=== PATIENT | female | born 1980 | race Caucasian/White ===

== ENCOUNTER 2016-07-25 01:33 | Emergency (ER) | payer MEDICAID ==
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
[2016-07-25] MEDS ORDERED: Ketorolac 60 MG/2 ML SDV IM ONE ×2 (02:35→02:45)
[2016-07-25] MEDS ORDERED: Acetaminophen 325 MG Tab PO ONE (02:36)
[2016-07-25 04:48] VITALS: BP 112/60
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
== END 2016-07-25 04:46 ==
LOC: MW.ED 01:33
DX: R51 Headache (principal); F17.200 Nicotine dependence, unspecified, uncomplicated; Z88.8 Allergy status to other drugs, medicaments and biological substances
CPT/HCPCS: 70450; 81025; 96372; 99284; J1885; 99283

== ENCOUNTER 2016-09-01 05:04 | Observation (INO) | payer MEDICAID ==
[2016-09-01] MEDS ORDERED: Ketorolac 30 MG/ML SDV IVPUSH ONE (05:55)
[2016-09-01] MEDS ORDERED: Ondansetron 4 MG/2 ML SDV IVPUSH ONE (05:55)
[2016-09-01] MEDS ORDERED: Sodium Chloride 0.9% 1,000 ML IV ONE (05:56)
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
[2016-09-01 07:07] LABS: CHLORIDE,CL 108 mmol/L (98-110); SODIUM,NA 137 mmol/L (136-146)
[2016-09-01] MEDS ORDERED: Iopamidol 755 Mg/ML 100 ML Bottle IVPUSH STA (07:27)
[2016-09-01] MEDS: HYDROmorphone 1 MG/ML Syringe IVPUSH PRN ×2 (09:43→12:53)
--- NOTE | 2016-09-01 10:20 | US ---
EXAMINATION: Right upper quadrant ultrasound HISTORY: Pain COMPARISON: CT dated 09/01/2016 TECHNIQUE: Grayscale and color Doppler images obtained. FINDINGS: The visualized pancreas appears normal. The liver is normal in contour and echogenicity wi thout a focal hepatic mass. The gallbladder wall thickness is borderline. Multiple shadowing gallsto obdulio are noted. Possible trace pericholecystic fluid. The sonographic Bailey sign is positive. The co mmon bile duct measures 3 mm. The right kidney measures 11.1 cm [id number] without evidence of hyd ronephrosis. IMPRESSION: 1. Positive sonographic Bailey sign with cholelithiasis and borderline gallbladder wall thickening. This is suspicious for cholecystitis.
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
[2016-09-01] MEDS: Acetaminophen/HYDROcodone 325-5 MG Tab PO PRN ×2 (11:47→15:48)
[2016-09-01] MEDS: Ondansetron 4 MG/2 ML SDV IVPUSH PRN ×2 (11:48→21:05)
--- NOTE | 2016-09-01 13:29 | PCM.HP ---
H&P History of Present Illness - General Date of Service: 09/01/16 Source of Information: Patient History Limitations: Reports: No Limitations - History of Present Illness Initial Comments - Free Text/Narative: Patient is a 36-year-old female who presents with a 12 hour history of right upper quadrant pain. The patient developed a similar pain in couple weeks ago that lasted for approximately 3 days then subsided. The patient thought she had eaten something that did not agree with her stomach. Last evening she ate a meal containing fat and developed more severe and intense right upper quadrant pain that radiated to her back. The pain did not subside with ibuprofen. She presented to the emergency room. A CT and right upper quadrant ultrasound were performed that showed a dilated gallbladder with associated stones and mild wall thickening concerning for acute cholecystitis. The patient was given IV fluids and pain medications but continues to have right upper quadrant pain. She denies any fevers or chills. Labs were performed that showed no elevation in her liver enzymes. Her white count is normal but her neutrophil percent is elevated. Middle Abdominal Pain Score (Numeric/FACES): 8 - Related Data Allergies/Adverse Reactions: Allergies Allergy/AdvReac Type Severity Reaction Status Date / Time cefaclor [From Ceclor] Allergy Rash Verified 09/01/16 05:16 Home Medications: Home Meds Amitriptyline [Elavil] 09/01/16 [History] Past Medical History HEENT History: Reports: Other (See Below) Other HEENT History: Migraines Cardiovascular History: Reports: None Respiratory History: Reports: None Gastrointestinal History: Reports: None Genitourinary History: Reports: None [employer] History: Reports: None Musculoskeletal History: Reports: None Neurological History: Reports: None Psychiatric History: Reports: None Endocrine/Metabolic History: Reports: None Oncologic (Cancer) History: Reports: None Dermatologic History: Reports: None - Infectious Disease History Infectious Disease History: Reports: Chicken Pox - Past Surgical History Female Surgical History: Reports: Hysterectomy Social & Family History - Family History Family Medical History: Noncontributory - Tobacco Use Smoking Status *Q: Never Smoker Years of Tobacco use: 20 Packs/Tins Daily: 0.5 - Caffeine Use Caffeine Use: Reports: None - Recreational Drug Use Recreational Drug Use: No Recreational Drug Type: Reports: Marijuana/Hashish, Methamphetamine Recreational Drug Use Frequency: Socially H&P Review of Systems - Review of Systems: Review Of Systems: See Below General: Reports: Malaise, Weakness HEENT: Reports: No Symptoms Pulmonary: Reports: No Symptoms Cardiovascular: Reports: No Symptoms Gastrointestinal: Reports: Abdominal Pain Genitourinary: Reports: No Symptoms Musculoskeletal: Reports: Back Pain Skin: Reports: No Symptoms Psychiatric: Reports: No Symptoms Neurological: Reports: No Symptoms Exam - Exam Exam: See Below - Vital Signs Vital Signs: Last Vital Signs Temp 37.1 C 09/01/16 05:13 Pulse 70 09/01/16 12:00 Resp 16 09/01/16 12:00 BP 109/70 09/01/16 12:00 Pulse Ox 98 09/01/16 12:00 Weight: 68.2 kg - Exam General: Alert, Oriented HEENT: Conjunctiva Clear, Mucosa Moist & [place], Nares Patent, Pupils Equal, Pupils Reactive, Other (Poor dentition) Lungs: Clear to Auscultation, Normal Respiratory Effort Cardiovascular: Regular Rate, Regular Rhythm Abdomen: Normal Bowel Sounds, Soft, Guarding, Tenderness, Bailey's Sign Back Exam: Normal Inspection Extremities: Normal Inspection - Patient Data Result Diagrams: 09/01/16 06:15 09/01/16 06:15 *Q Meaningful Use (ADM) - VTE *Q VTE Criteria *Q: - Stroke *Q Stroke Criteria *Q: - AMI *Q AMI Criteria *Q: - Problem List (1) Cholecystitis SNOMED Code(s): 76433027 ICD Code: K81.9 - CHOLECYSTITIS, UNSPECIFIED Status: Acute Current Visit : Yes Problem List Initiated/Reviewed/Updated: Yes Orders Last 24hrs: Active Orders 24 hr Category Date Time Status Patient Status [ADT] Routine ADT 09/01/16 11:30 Active May Shower [RC] ASDIRECTED Care 09/01/16 11:30 Active Notify Provider Vital Signs [RC] PRN Care 09/01/16 11:32 Active RT Incentive Spirometry [RC] ASDIRECTED Care 09/01/16 11:30 Active Vital Signs [RC] PER UNIT ROUTINE Care 09/01/16 11:30 Active Clear Liquid Diet [DIET] Diet 09/01/16 Breakfast Active COMPREHENSIVE METABOLIC PN,CMP [CHEM] AM Lab 09/02/16 05:11 Ordered COMPREHENSIVE METABOLIC PN,CMP [CHEM] AM Lab 09/03/16 05:11 Ordered Acetaminophen/HYDROcodone [[place] 325-5 MG] Med 09/01/16 11:30 Active 2 tab PO Q4H PRN HYDROmorphone [Dilaudid] Med 09/01/16 11:30 Active 0.5 mg IVPUSH Q1H PRN Ondansetron [Zofran] Med 09/01/16 11:30 Active 4 mg IVPUSH Q6H PRN Resuscitation Status Routine Resus Stat 09/01/16 11:30 Ordered Medication Orders Hydrocodone Bitart/Acetaminophen ([place] 325-5 Mg) 2 tab PO Q4H PRN PRN Reason: Pain (moderate 4-6) Last Admin: 09/01/16 11:47 Dose: 2 tab Hydromorphone HCl (Dilaudid) 0.5 mg IVPUSH Q1H PRN PRN Reason: Pain Last Admin: 09/01/16 12:53 Dose: 0.5 mg Admin: 09/01/16 09:43 Dose: 0.5 mg Hydromorphone HCl (Dilaudid) 0.5 mg IVPUSH Q1H PRN PRN Reason: Pain (severe 7-10) Ondansetron HCl (Zofran) 4 mg IVPUSH Q6H PRN PRN Reason: Nausea/Vomiting Last Admin: 09/01/16 11:48 Dose: 4 mg Assessment/Plan Comment:: The patient has signs of cholecystitis. Her pain is not improved with IV and oral pain medications. Given her clinical and imaging findings I believe she has acute calculous cholecystitis. Since she is within 72 hours of the onset of pain I will take out her gallbladder. The patient and I discussed the pathophysiology of biliary disease. The patient and I discussed the laparoscopic and open approach to cholecystectomy. Should I be unable to remove the gallbladder safely via the laparoscopic approach I will convert to open. We discussed the expected perioperative course as well as the risks including bleeding infection or damage to surrounding structures. Patient verbalized understanding and wishes to proceed. I wouldn't her overnight for IV fluid rehydration, antibiotics, and will make her n.p.o. at midnight for surgery.
--- NOTE | 2016-09-01 14:43 | PCM.PREANE ---
Preanesthetic Assessment - Procedure Proposed Procedure: laparoscopic cholecystectomy - Anesthesia/Transfusion/Family Hx Anesthesia History: Prior Anesthesia Without Reaction Family History of Anesthesia Reaction: No Intubation History: Unknown Additional History: see substance abuse hx - Review of Systems General: No Symptoms Pulmonary: No Symptoms Cardiovascular: No Symptoms Gastrointestinal: Abdominal pain (led to ER admission today) Neurological: Headache (treated with amitryptiline) Other: Reports: None - Physical Assessment NPO Status Date: 09/01/16 NPO Status Time: 23:55 O2 Sat by Pulse Oximetry: 98 Respiratory Rate: 16 Vital Signs: Last Vital Signs Temp 98.8 F 09/01/16 05:13 Pulse 70 09/01/16 12:00 Resp 16 09/01/16 12:00 BP 109/70 09/01/16 12:00 Pulse Ox 98 09/01/16 12:00 Height: 5 ft 7 in Weight: 150 lb 5.684 oz ASA Class: 2E Mental Status: Alert & Oriented x3 Dentition: Reports: Broken Tooth/Teeth (poor oral dental appearance (? meth exposure)), Missing Tooth/Teeth Thyro-Mental Finger Breadths: 3 Mouth Opening Finger Breadths: 3 ROM/Head Extension: Full Lungs: Clear to auscultation, Normal respiratory effort - Lab Values: Laboratory Last Values WBC 8.77 K/uL (4.0-11.0) 09/01/16 06:15 RBC 4.64 M/uL (4.30-5.90) 09/01/16 06:15 Hgb 14.0 g/dL (12.0-16.0) 09/01/16 06:15 Hct 42.3 % (36.0-46.0) 09/01/16 06:15 MCV 91.2 fL (80.0-98.0) 09/01/16 06:15 MCH 30.2 pg (27.0-32.0) 09/01/16 06:15 MCHC 33.1 g/dL (31.0-37.0) 09/01/16 06:15 RDW Std Deviation 45.8 fl (28.0-62.0) 09/01/16 06:15 RDW Coeff of Rajeev 14 % (11.0-15.0) 09/01/16 06:15 Plt Count 258 K/uL (150-400) 09/01/16 06:15 MPV 9.30 fL (7.40-12.00) 09/01/16 06:15 Neut % (Auto) 80.3 % (48.0-80.0) H 09/01/16 06:15 Lymph % (Auto) 15.4 % (16.0-40.0) L 09/01/16 06:15 [place] % (Auto) 3.6 % (0.0-15.0) 09/01/16 06:15 Eos % (Auto) 0.5 % (0.0-7.0) 09/01/16 06:15 Baso % (Auto) 0.2 % (0.0-1.5) 09/01/16 06:15 Neut # (Auto) 7.0 K/uL (1.4-5.7) H 09/01/16 06:15 Lymph # (Auto) 1.4 K/uL (0.6-2.4) 09/01/16 06:15 [place] # (Auto) 0.3 K/uL (0.0-0.8) 09/01/16 06:15 Eos # (Auto) 0.0 K/uL (0.0-0.7) 09/01/16 06:15 Baso # (Auto) 0.0 K/uL (0.0-0.1) 09/01/16 06:15 Nucleated RBC % 0.0 /100WBC 09/01/16 06:15 Nucleated RBCs # 0 K/uL 09/01/16 06:15 Sodium 137 mmol/L (136-146) 09/01/16 06:15 Potassium 4.0 mmol/L (3.5-5.1) 09/01/16 06:15 Chloride 108 mmol/L (98-110) 09/01/16 06:15 Carbon Dioxide 21 mmol/L (21-31) 09/01/16 06:15 BUN 8 mg/dL (6.0-23.0) 09/01/16 06:15 Creatinine 0.7 mg/dL (0.6-1.5) 09/01/16 06:15 Est Cr Clr Drug Dosing 109.08 mL/min 09/01/16 06:15 Estimated GFR (MDRD) > 60.0 ml/min 09/01/16 06:15 Glucose 116 mg/dL (60-110) H 09/01/16 06:15 Calcium 8.8 mg/dL (8.8-10.8) 09/01/16 06:15 Total Bilirubin 0.5 mg/dL (0.1-1.5) 09/01/16 06:15 AST 13 IU/L (5-40) 09/01/16 06:15 ALT 10 IU/L (8-54) 09/01/16 06:15 Alkaline Phosphatase 58 (40-150) 09/01/16 06:15 Total Protein 7.3 g/dL (6.0-8.0) 09/01/16 06:15 Albumin 4.6 g/dL (3.5-5.0) 09/01/16 06:15 Globulin 2.7 g/dL (2.0-3.5) 09/01/16 06:15 Albumin/Globulin Ratio 1.7 (1.3-2.8) 09/01/16 06:15 Lipase 11 U/L (7-80) 09/01/16 06:15 Urine Color YELLOW 09/01/16 05:30 Urine Appearance SLT CLOUDY 09/01/16 05:30 Urine pH 7.5 (5.0-8.0) 09/01/16 05:30 Ur Specific [place] 1.010 (1.001-1.035) 09/01/16 05:30 Urine Protein TRACE mg/dL (NEGATIVE) 09/01/16 05:30 Urine Glucose (UA) NEGATIVE mg/dL (NEGATIVE) 09/01/16 05:30 Urine Ketones NEGATIVE mg/dL (NEGATIVE) 09/01/16 05:30 Urine Occult Blood NEGATIVE (NEGATIVE) 09/01/16 05:30 Urine Nitrite NEGATIVE (NEGATIVE) 09/01/16 05:30 Urine Bilirubin NEGATIVE (NEGATIVE) 09/01/16 05:30 Urine Urobilinogen 0.2 EU/dL (<2.0) 09/01/16 05:30 Ur Leukocyte Esterase NEGATIVE (NEGATIVE) 09/01/16 05:30 Urine RBC NONE SEEN (0-2/HPF) 09/01/16 05:30 Urine WBC 0-1 (0-5/HPF) 09/01/16 05:30 Ur Epithelial Cells FEW (NONE-FEW) 09/01/16 05:30 Amorphous Sediment LIGHT (NEGATIVE) 09/01/16 05:30 Urine Bacteria FEW (NEGATIVE) 09/01/16 05:30 Urine HCG, Qual NEGATIVE (NEGATIVE) 09/01/16 05:30 - Allergies Allergies/Adverse Reactions: Allergies Allergy/AdvReac Type Severity Reaction Status Date / Time cefaclor [From Ceclor] Allergy Rash Verified 09/01/16 05:16 - Blood Blood Available: No Product(s) Available: None - Anesthesia Plan Pre-Op Medication Ordered: None - Acknowledgements Anesthesia Type Planned: General Anesthesia (OETT) Pt an Appropriate Candidate for the Planned Anesthesia: Yes Alternatives and Risks of Anesthesia Discussed w Pt/Guardian: Yes Pt/Guardian Understands and Agrees with Anesthesia Plan: Yes PreAnesthesia Questionnaire - Past Health History Medical/Surgical History: Denies Medical/Surgical History HEENT History: Reports: Other (See Below) Other HEENT History: Migraines Cardiovascular History: Reports: None Respiratory History: Reports: None Gastrointestinal History: Reports: None Genitourinary History: Reports: None SACK FILLER History: Reports: None Other OB/BYN History: Cervical cancer 2009 Musculoskeletal History: Reports: None Neurological History: Reports: None Psychiatric History: Reports: None Endocrine/Metabolic History: Reports: None Hematologic History: Reports: Other (See Below) Other Hematologic History: Son has hemophilia Oncologic (Cancer) History: Reports: None Other Oncologic History: Cervical Cancer, radical hysterectomy via davinci method Dermatologic History: Reports: None - Infectious Disease History Infectious Disease History: Reports: Chicken Pox - Past Surgical History Female Surgical History: Reports: Hysterectomy - SUBSTANCE USE Smoking Status *Q: Never Smoker Tobacco Use Within Last Twelve Months: Cigarettes Second Hand Smoke Exposure: No Recreational Drug Use History: No Recreational Drug Type: Reports: Marijuana/Hashish, Methamphetamine - HOME MEDS Home Medications: Home Meds Amitriptyline [Elavil] 09/01/16 [History] - CURRENT (IN HOUSE) MEDS Current Meds: Current Medications Hydrocodone Bitart/Acetaminophen ([place] 325-5 Mg) 2 tab PO Q4H PRN PRN Reason: Pain (moderate 4-6) Last Admin: 09/01/16 11:47 Dose: 2 tab Hydromorphone HCl (Dilaudid) 0.5 mg IVPUSH Q1H PRN PRN Reason: Pain (severe 7-10) Lactated Ringer's (Ringers, Lactated) 1,000 mls @ 125 mls/hr IV ASDIRECTED JENNA Piperacillin Sod/Tazobactam (Sod 3.375 gm/ Sodium Chloride) 50 mls @ 100 mls/ hr IV Q8H JENNA Ondansetron HCl (Zofran) 4 mg IVPUSH Q6H PRN PRN Reason: Nausea/Vomiting Last Admin: 09/01/16 11:48 Dose: 4 mg Discontinued Medications Hydromorphone HCl (Dilaudid) 0.5 mg IVPUSH Q1H PRN PRN Reason: Pain Last Admin: 09/01/16 12:53 Dose: 0.5 mg Sodium Chloride (Normal Saline) 1,000 mls @ 999 mls/hr IV .Bolus ONE Stop: 09/01/16 06:56 Last Admin: 09/01/16 06:09 Dose: 999 mls/hr Iopamidol (Isovue-370 (76%)) 83 ml IVPUSH ONETIME STA Stop: 09/01/16 07:28 Last Admin: 09/01/16 07:27 Dose: 83 ml Ketorolac Tromethamine (Toradol) 30 mg IVPUSH ONETIME ONE Stop: 09/01/16 05:56 Last Admin: 09/01/16 06:11 Dose: 30 mg Ondansetron HCl (Zofran) 4 mg IVPUSH ONETIME ONE Stop: 09/01/16 05:56 Last Admin: 09/01/16 06:10 Dose: 4 mg
[2016-09-01] MEDS: Lactated Ringers 1,000 ML IV SCH ×2 (15:00→21:07)
[2016-09-01] MEDS: Piperacillin/Tazobactam 3.375 GM in Sodium Chloride 0.9% 50 ML IV SCH ×2 (15:30→22:09)
[2016-09-01] MEDS: Amitriptyline 25 MG Tab PO SCH (20:00)
[2016-09-01] MEDS: HYDROmorphone 2 MG/ML Syringe IVPUSH PRN (21:01)
[2016-09-02] MEDS ORDERED: Lactated Ringers 1,000 ML IV SCH (05:00)
[2016-09-02] MEDS: Piperacillin/Tazobactam 3.375 GM in Sodium Chloride 0.9% 50 ML IV SCH ×2 (05:36→14:42)
[2016-09-02 06:15] LABS: CHLORIDE,CL 109 mmol/L (98-110); SODIUM,NA 136 mmol/L (136-146)
[2016-09-02] MEDS ORDERED: Midazolam 1 MG/ML 2 ML SDV ONE ×2 (07:54→08:47)
[2016-09-02] MEDS ORDERED: Propofol 200 MG/20 ML SDV ONE (07:54)
[2016-09-02] MEDS ORDERED: fentaNYL 250 MCG/5 ML SDV ONE (07:54)
[2016-09-02] MEDS ORDERED: Succinylcholine/Normal Saline 200 MG/10 ML Syringe ONE ×2 (07:55→10:52)
[2016-09-02] MEDS ORDERED: Rocuronium 10 MG/ML 10 ML Syringe ONE (07:55)
[2016-09-02] MEDS ORDERED: Ondansetron 4 MG/2 ML SDV ONE (07:55)
[2016-09-02] MEDS ORDERED: Dexamethasone 4 MG/ML 5 ML MDV ONE (07:55)
[2016-09-02] MEDS ORDERED: Bupivacaine 0.5% 30 ML SDV ONE (07:56)
[2016-09-02] MEDS ORDERED: Neostigmine Methylsulfate 1 MG/ML 5 ML Syringe ONE (07:57)
--- NOTE | 2016-09-02 07:58 | PCM.SURGPN ---
- General Info Date of Service: 09/02/16 Date of Surgery/Procedure: 09/02/16 Functional Status: Reports: pain controlled, other (Patient had one dose of norco last night after which she became itchy, dizzy, and her blood pressure became soft. BP came up with bolus of fluid and remained stable after that. Rest of symptoms resolved. Toelrated dilaudid. Abdomen feels better this morning. ) - Review of Systems General: Reports: No Symptoms Pulmonary: Reports: no symptoms Cardiovascular: Reports: No Symptoms Gastrointestinal: Reports: Abdominal pain (improved), Nausea (last evening). Denies: Vomiting - Patient Data Vitals - most recent: Last Vital Signs Temp 37.3 C 09/02/16 04:04 Pulse 83 09/02/16 04:04 Resp 16 09/02/16 04:04 BP 93/52 L 09/02/16 04:04 Pulse Ox 96 09/02/16 04:04 Weight - most recent: 68.2 kg I&O - last 24 hours: Intake & Output 09/01/16 09/02/16 09/02/16 22:59 06:59 14:59 Intake Total 604 2637 Output Total 350 350 Balance 254 2287 Lab Results last 24 hrs: Laboratory Results - last 24 hr 09/02/16 Range/Units 05:28 Sodium 136 (136-146) mmol/L Potassium 3.9 (3.5-5.1) mmol/L Chloride 109 (98-110) mmol/L Carbon Dioxide 21 (21-31) mmol/L BUN 5 L (6.0-23.0) mg/dL Creatinine 0.6 (0.6-1.5) mg/dL Est Cr Clr Drug Dosing 127.26 mL/min Estimated GFR (MDRD) > 60.0 ml/min Glucose 108 (60-110) mg/dL Calcium 7.6 L (8.8-10.8) mg/dL Total Bilirubin 0.8 (0.1-1.5) mg/dL AST 287 H (5-40) IU/L ALT 347 H (8-54) IU/L Alkaline Phosphatase 53 (40-150) Total Protein 5.4 L (6.0-8.0) g/dL Albumin 3.5 (3.5-5.0) g/dL Globulin 1.9 L (2.0-3.5) g/dL Albumin/Globulin Ratio 1.8 (1.3-2.8) Med Orders - Current: Current Medications Amitriptyline HCl (Elavil) 25 mg PO BEDTIME [facility] Last Admin: 09/01/16 20:00 Dose: 25 mg Hydromorphone HCl (Dilaudid) 0.5 mg IVPUSH Q1H PRN PRN Reason: Pain (severe 7-10) Last Admin: 09/01/16 21:01 Dose: 0.5 mg Lactated Ringer's (Ringers, Lactated) 1,000 mls @ 125 mls/hr IV ASDIRECTED [facility] Last Admin: 09/01/16 21:07 Dose: 125 mls/hr Piperacillin Sod/Tazobactam (Sod 3.375 gm/ Sodium Chloride) 50 mls @ 100 mls/ hr IV Q8H [facility] Last Admin: 09/02/16 05:36 Dose: 100 mls/hr Lactated Ringer's (Ringers, Lactated) 1,000 mls @ 200 mls/hr IV ASDIRECTED [facility] Stop: 09/02/16 10:00 Last Admin: 09/02/16 05:39 Dose: 200 mls/hr Ondansetron HCl (Zofran) 4 mg IVPUSH Q6H PRN PRN Reason: Nausea/Vomiting Last Admin: 09/01/16 21:05 Dose: 4 mg Discontinued Medications Hydrocodone Bitart/Acetaminophen ([place] 325-5 Mg) 2 tab PO Q4H PRN PRN Reason: Pain (moderate 4-6) Last Admin: 09/01/16 15:48 Dose: 2 tab Hydromorphone HCl (Dilaudid) 0.5 mg IVPUSH Q1H PRN PRN Reason: Pain Last Admin: 09/01/16 12:53 Dose: 0.5 mg Sodium Chloride (Normal Saline) 1,000 mls @ 999 mls/hr IV .Bolus ONE Stop: 09/01/16 06:56 Last Admin: 09/01/16 06:09 Dose: 999 mls/hr Iopamidol (Isovue-370 (76%)) 83 ml IVPUSH ONETIME STA Stop: 09/01/16 07:28 Last Admin: 09/01/16 07:27 Dose: 83 ml Ketorolac Tromethamine (Toradol) 30 mg IVPUSH ONETIME ONE Stop: 09/01/16 05:56 Last Admin: 09/01/16 06:11 Dose: 30 mg Ondansetron HCl (Zofran) 4 mg IVPUSH ONETIME ONE Stop: 09/01/16 05:56 Last Admin: 09/01/16 06:10 Dose: 4 mg - Exam General: alert, oriented Lungs: Normal respiratory effort Cardiovascular: Regular Rate Abdomen: soft, no distension, tenderness (in RUQ) - Problem List & Annotations (1) Cholecystitis SNOMED Code(s): 31706147 Code(s): K81.9 - CHOLECYSTITIS, UNSPECIFIED Status: Acute Current Visit: Yes - Problem List Review Problem List Initiated/Reviewed/Updated: Yes - My Orders Last 24 Hours: Active Orders 24 hr Category Date Time Status Patient Status [ADT] Routine ADT 09/01/16 11:30 Active May Shower [RC] ASDIRECTED Care 09/01/16 11:30 Active Notify Provider Vital Signs [RC] PRN Care 09/01/16 11:32 Active Vital Signs [RC] PER UNIT ROUTINE Care 09/01/16 11:30 Active NPO After Midnight [Nothing per Oral After Midnight Diet 09/01/16 Dinner Active Diet] [DIET] COMPREHENSIVE METABOLIC PN,CMP [CHEM] AM Lab 09/03/16 05:11 Ordered Amitriptyline [Elavil] Med 09/01/16 21:00 Active 25 mg PO BEDTIME HYDROmorphone [Dilaudid] Med 09/01/16 11:30 Active 0.5 mg IVPUSH Q1H PRN Lactated Ringers [Ringers, Lactated] 1,000 ml Med 09/01/16 14:15 Active IV ASDIRECTED Lactated Ringers [Ringers, Lactated] 1,000 ml Med 09/02/16 05:00 Active IV ASDIRECTED Ondansetron [Zofran] Med 09/01/16 11:30 Active 4 mg IVPUSH Q6H PRN Piperacillin/Tazobactam [Piperacil-Tazobact] 3.375 gm Med 09/01/16 14:30 Active Sodium Chloride 0.9% [Normal Saline] 50 ml IV Q8H Resuscitation Status Routine Resus Stat 09/01/16 11:30 Ordered Medication Orders Amitriptyline HCl (Elavil) 25 mg PO BEDTIME [facility] Last Admin: 09/01/16 20:00 Dose: 25 mg Hydromorphone HCl (Dilaudid) 0.5 mg IVPUSH Q1H PRN PRN Reason: Pain (severe 7-10) Last Admin: 09/01/16 21:01 Dose: 0.5 mg Lactated Ringer's (Ringers, Lactated) 1,000 mls @ 125 mls/hr IV ASDIRECTED [facility] Last Admin: 09/01/16 21:07 Dose: 125 mls/hr Infusion: 09/01/16 21:07 Dose: 125 mls/hr Admin: 09/01/16 15:00 Dose: 125 mls/hr Piperacillin Sod/Tazobactam (Sod 3.375 gm/ Sodium Chloride) 50 mls @ 100 mls/ hr IV Q8H [facility] Last Admin: 09/02/16 05:36 Dose: 100 mls/hr Infusion: 09/01/16 22:39 Dose: 100 mls/hr Admin: 09/01/16 22:09 Dose: 100 mls/hr Infusion: 09/01/16 16:00 Dose: 100 mls/hr Admin: 09/01/16 15:30 Dose: 100 mls/hr Lactated Ringer's (Ringers, Lactated) 1,000 mls @ 200 mls/hr IV ASDIRECTED [facility] Stop: 09/02/16 10:00 Last Admin: 09/02/16 05:39 Dose: 200 mls/hr Ondansetron HCl (Zofran) 4 mg IVPUSH Q6H PRN PRN Reason: Nausea/Vomiting Last Admin: 09/01/16 21:05 Dose: 4 mg Admin: 09/01/16 11:48 Dose: 4 mg - Plan Plan (Free Text/Narrative):: To the OR this am for laparoscopic possible open cholecystectomy. Elevated AST/ ALT but not bilirubin or Alk phos point to inflammation around the liver. Will avoid norco and it has been added to allergy list.
[2016-09-02] MEDS ORDERED: Phenylephrine/Normal Saline 100 MCG/ML 10 ML Syringe ONE ×2 (10:41→10:51)
[2016-09-02] MEDS ORDERED: Octyl 2-Cyanoacrylate 1 Tube ONE (11:27)
--- NOTE | 2016-09-02 11:44 | PCM.OPNOTE ---
- General Post-Op/Procedure Note Date of Surgery/Procedure: 09/02/16 Operative Procedure(s): Laparoscopic cholecystectomy Findings: Grossly enlarged and inflammed gallbladder containing stones Pre Op Diagnosis: Acute cholecystitis Post-Op Diagnosis: same Anesthesia Technique: General ET tube Primary Surgeon: Wendie Parry Pathology: gallbladder Fluid Replacement, Intraop: 1,400 Output, Urine Amount: 200 EBL in mLs: 25 Condition: Good Free Text/Narrative:: Intake & Output 09/01/16 09/02/16 09/02/16 22:59 06:59 14:59 Intake Total 604 2637 Output Total 350 350 Balance 254 2287
[2016-09-02] MEDS: fentaNYL 100 MCG/2 ML SDV IVPUSH PRN ×2 (11:59→12:11)
--- NOTE | 2016-09-02 12:14 | PCM.POSTAN ---
POST ANESTHESIA ASSESSMENT - MENTAL STATUS Mental Status: alert, oriented - RESPIRATORY Respiratory Status: respiratory rate WNL, airway patent, O2 saturation stable - CARDIOVASCULAR CV Status: pulse rate WNL, blood pressure stable - GASTROINTESTINAL GI Status: no symptoms - PAIN Pain Score: 5 (Pt sleepy and needs to be awakened by RN to ask pain score) - POST OP HYDRATION Hydration Status: adequate & stable
--- NOTE | 2016-09-02 14:57 | PCM.SURGPN ---
- General Info Date of Service: 09/02/16 Date of Surgery/Procedure: 09/02/16 POD#: 0 Post-Op Diagnosis: Acute cholecystitis Functional Status: Reports: pain controlled, tolerating diet, ambulating, incentive spirometry - Review of Systems General: Reports: No Symptoms Pulmonary: Reports: no symptoms Cardiovascular: Reports: No Symptoms Gastrointestinal: Reports: Abdominal pain (incisional ) Genitourinary: Reports: no symptoms Musculoskeletal: Reports: no symptoms - Patient Data Vitals - most recent: Last Vital Signs Temp 36.6 C 09/02/16 13:23 Pulse 67 09/02/16 13:23 Resp 16 09/02/16 13:23 BP 89/50 L 09/02/16 13:23 Pulse Ox 100 09/02/16 13:23 Weight - most recent: 68.2 kg I&O - last 24 hours: Intake & Output 09/01/16 09/02/16 09/02/16 22:59 06:59 14:59 Intake Total 604 2637 3000 Output Total 350 350 400 Balance 254 2287 2600 Lab Results last 24 hrs: Laboratory Results - last 24 hr 09/02/16 09/02/16 Range/Units 05:28 05:28 Sodium 136 (136-146) mmol/L Potassium 3.9 (3.5-5.1) mmol/L Chloride 109 (98-110) mmol/L Carbon Dioxide 21 (21-31) mmol/L BUN 5 L (6.0-23.0) mg/dL Creatinine 0.6 (0.6-1.5) mg/dL Est Cr Clr Drug Dosing 127.26 mL/min Estimated GFR (MDRD) > 60.0 ml/min Glucose 108 (60-110) mg/dL Calcium 7.6 L (8.8-10.8) mg/dL Total Bilirubin 0.8 (0.1-1.5) mg/dL AST 287 H (5-40) IU/L ALT 347 H (8-54) IU/L Alkaline Phosphatase 53 (40-150) Total Protein 5.4 L (6.0-8.0) g/dL Albumin 3.5 (3.5-5.0) g/dL Globulin 1.9 L (2.0-3.5) g/dL Albumin/Globulin Ratio 1.8 (1.3-2.8) Amylase 34 (10-90) U/L Lipase 10 (7-80) U/L Med Orders - Current: Current Medications Amitriptyline HCl (Elavil) 25 mg PO BEDTIME [facility] Last Admin: 09/01/16 20:00 Dose: 25 mg Hydromorphone HCl (Dilaudid) 0.5 mg IVPUSH Q1H PRN PRN Reason: Pain (severe 7-10) Last Admin: 09/01/16 21:01 Dose: 0.5 mg Hydromorphone HCl (Dilaudid) 2 mg PO Q4H PRN PRN Reason: Abdominal Pain Lactated Ringer's (Ringers, Lactated) 1,000 mls @ 125 mls/hr IV ASDIRECTED [facility] Last Admin: 09/01/16 21:07 Dose: 125 mls/hr Piperacillin Sod/Tazobactam (Sod 3.375 gm/ Sodium Chloride) 50 mls @ 100 mls/ hr IV Q8H [facility] Last Admin: 09/02/16 14:42 Dose: 100 mls/hr Ondansetron HCl (Zofran) 4 mg IVPUSH Q6H PRN PRN Reason: Nausea/Vomiting Last Admin: 09/01/16 21:05 Dose: 4 mg Discontinued Medications Hydrocodone Bitart/Acetaminophen ([place] 325-5 Mg) 2 tab PO Q4H PRN PRN Reason: Pain (moderate 4-6) Last Admin: 09/01/16 15:48 Dose: 2 tab Bupivacaine HCl (Marcaine 0.5%) Confirm Administered Dose 30 ml .ROUTE .STK-MED ONE Stop: 09/02/16 07:57 Dexamethasone (Dexamethasone) Confirm Administered Dose 20 mg .ROUTE .STK-MED ONE Stop: 09/02/16 07:56 Fentanyl (Sublimaze) Confirm Administered Dose 250 mcg .ROUTE .STK-MED ONE Stop: 09/02/16 07:55 Fentanyl (Sublimaze) 50 mcg IVPUSH Q5M PRN PRN Reason: Pain (moderate 4-6) Stop: 09/02/16 13:00 Last Admin: 09/02/16 12:11 Dose: 50 mcg Glycopyrrolate () Confirm Administered Dose 1 mg .ROUTE .STK-MED ONE Stop: 09/02/16 07:58 Hydromorphone HCl (Dilaudid) 0.5 mg IVPUSH Q1H PRN PRN Reason: Pain Last Admin: 09/01/16 12:53 Dose: 0.5 mg Sodium Chloride (Normal Saline) 1,000 mls @ 999 mls/hr IV .Bolus ONE Stop: 09/01/16 06:56 Last Admin: 09/01/16 06:09 Dose: 999 mls/hr Lactated Ringer's (Ringers, Lactated) 1,000 mls @ 200 mls/hr IV ASDIRECTED JENNA Stop: 09/02/16 10:00 Last Admin: 09/02/16 05:39 Dose: 200 mls/hr Iopamidol (Isovue-370 (76%)) 83 ml IVPUSH ONETIME STA Stop: 09/01/16 07:28 Last Admin: 09/01/16 07:27 Dose: 83 ml Ketorolac Tromethamine (Toradol) 30 mg IVPUSH ONETIME ONE Stop: 09/01/16 05:56 Last Admin: 09/01/16 06:11 Dose: 30 mg Lidocaine HCl (Xylocaine-Mpf 1%) Confirm Administered Dose 5 ml .ROUTE .STK-MED ONE Stop: 09/02/16 07:56 Midazolam HCl (Versed 1 Mg/Ml) Confirm Administered Dose 2 mg .ROUTE .STK-MED ONE Stop: 09/02/16 07:55 Midazolam HCl (Versed 1 Mg/Ml) Confirm Administered Dose 2 mg .ROUTE .STK-MED ONE Stop: 09/02/16 08:48 Neostigmine Methylsulfate (Neostigmine) Confirm Administered Dose 5 mg .ROUTE .STK-MED ONE Stop: 09/02/16 07:58 Octyl Cyanoacrylate (Dermabond Advance) Confirm Administered Dose 1 applic .ROUTE .STK-MED ONE Stop: 09/02/16 11:28 Ondansetron HCl (Zofran) 4 mg IVPUSH ONETIME ONE Stop: 09/01/16 05:56 Last Admin: 09/01/16 06:10 Dose: 4 mg Ondansetron HCl (Zofran) Confirm Administered Dose 4 mg .ROUTE .STK-MED ONE Stop: 09/02/16 07:56 Phenylephrine HCl (Phenylephrine In Ns 100 Mcg/Ml) Confirm Administered Dose 1 mg .ROUTE .STK-MED ONE Stop: 09/02/16 10:42 Phenylephrine HCl (Phenylephrine In Ns 100 Mcg/Ml) Confirm Administered Dose 1 mg .ROUTE .STK-MED ONE Stop: 09/02/16 10:52 Propofol (Diprivan 20 Ml) Confirm Administered Dose 200 mg .ROUTE .STK-MED ONE Stop: 09/02/16 07:55 Rocuronium [place] (Zemuron) Confirm Administered Dose 100 mg .ROUTE .STK-MED ONE Stop: 09/02/16 07:56 Succinylcholine Chloride (Succinylcholine In Ns Pf) Confirm Administered Dose 200 mg .ROUTE .STK-MED ONE Stop: 09/02/16 07:56 Succinylcholine Chloride (Succinylcholine In Ns Pf) Confirm Administered Dose 200 mg .ROUTE .STK-MED ONE Stop: 09/02/16 10:53 - Exam Wound/Incisions: dressing dry and intact General: alert, oriented, cooperative, no acute distress Lungs: Normal respiratory effort Cardiovascular: Regular Rate Abdomen: soft, no distension, tenderness (michelle-incisional ) Extremities: no edema Skin: warm, dry, intact Neurological: no new focal deficit Psy/Mental Status: alert, normal affect, normal mood - Problem List & Annotations (1) Cholecystitis SNOMED Code(s): 00392321 Code(s): K81.9 - CHOLECYSTITIS, UNSPECIFIED Status: Acute Current Visit: Yes - Problem List Review Problem List Initiated/Reviewed/Updated: Yes - My Orders Last 24 Hours: Active Orders 24 hr Category Date Time Status Advance Diet Instructions [DIET] Diet 09/02/16 Lunch Active Clear Liquid Diet [DIET] Diet 09/02/16 Lunch Active CBC W/O DIFF,HEMOGRAM [HEME] AM Lab 09/03/16 05:11 Ordered CBC W/O DIFF,HEMOGRAM [HEME] AM Lab 09/04/16 05:11 Ordered COMPREHENSIVE METABOLIC PN,CMP [CHEM] AM Lab 09/03/16 05:11 Ordered Amitriptyline [Elavil] Med 09/01/16 21:00 Active 25 mg PO BEDTIME HYDROmorphone [Dilaudid] Med 09/02/16 11:44 Active 2 mg PO Q4H PRN Lactated Ringers [Ringers, Lactated] 1,000 ml Med 09/01/16 14:15 Active IV ASDIRECTED Piperacillin/Tazobactam [Piperacil-Tazobact] 3.375 gm Med 09/01/16 14:30 Active Sodium Chloride 0.9% [Normal Saline] 50 ml IV Q8H Medication Orders Amitriptyline HCl (Elavil) 25 mg PO BEDTIME [facility] Last Admin: 09/01/16 20:00 Dose: 25 mg Hydromorphone HCl (Dilaudid) 0.5 mg IVPUSH Q1H PRN PRN Reason: Pain (severe 7-10) Last Admin: 09/01/16 21:01 Dose: 0.5 mg Hydromorphone HCl (Dilaudid) 2 mg PO Q4H PRN PRN Reason: Abdominal Pain Lactated Ringer's (Ringers, Lactated) 1,000 mls @ 125 mls/hr IV ASDIRECTED [facility] Last Admin: 09/01/16 21:07 Dose: 125 mls/hr Infusion: 09/01/16 21:07 Dose: 125 mls/hr Admin: 09/01/16 15:00 Dose: 125 mls/hr Piperacillin Sod/Tazobactam (Sod 3.375 gm/ Sodium Chloride) 50 mls @ 100 mls/ hr IV Q8H [facility] Last Admin: 09/02/16 14:42 Dose: 100 mls/hr Infusion: 09/02/16 06:06 Dose: 100 mls/hr Admin: 09/02/16 05:36 Dose: 100 mls/hr Infusion: 09/01/16 22:39 Dose: 100 mls/hr Admin: 09/01/16 22:09 Dose: 100 mls/hr Infusion: 09/01/16 16:00 Dose: 100 mls/hr Admin: 09/01/16 15:30 Dose: 100 mls/hr Ondansetron HCl (Zofran) 4 mg IVPUSH Q6H PRN PRN Reason: Nausea/Vomiting Last Admin: 09/01/16 21:05 Dose: 4 mg Admin: 09/01/16 11:48 Dose: 4 mg - Assessment Assessment (Free Text/Narrative):: _IV and po dilaudid as needed for pain. Advance diet as tolerated. Continue IVF until tolerating a regular diet. CBC and CMP in morning. Doing well post op.
--- NOTE | 2016-09-02 15:43 | OR ---
SURGEON: MACKENZIE CORBETT MD DATE OF PROCEDURE: 09/02/2016 PREOPERATIVE DIAGNOSIS: Acute cholecystitis. POSTOPERATIVE DIAGNOSIS: Acute cholecystitis. PROCEDURE PERFORMED: Laparoscopic cholecystectomy. ANESTHESIA: General endotracheal anesthesia. FLUIDS: 1400 mL crystalloid. URINE OUTPUT: 200 mL. ESTIMATED BLOOD LOSS: 25 mL. FINDINGS: Enlarged hydropic gallbladder, acutely inflamed. The gallbladder contained stones. COMPLICATIONS: None. INDICATIONS: The patient is a 36-year-old female with a history of right upper quadrant pain. Two nights ago, the patient had a fatty meal and developed sharp right upper quadrant pain that radiated to her back. She presented to the emergency room. A workup was completed that showed acute cholecystitis with no signs of choledocholithiasis. The patient was admitted overnight for IV fluid hydration and IV antibiotics. I explained to the patient that the treatment for acutely presenting cholecystitis is surgery. We discussed the laparoscopic and open approaches to cholecystectomy. Should I be unable to perform this safely laparoscopically, I would convert to open. We discussed the expected perioperative course as well as the risks of the procedure including bleeding, infection, or damage to surrounding structures. The patient verbalized understanding and wishes to proceed. PROCEDURE IN DETAIL: The patient was brought to the operating room and placed on the OR table in supine position. A time-out was completed verifying the patient's name, age, date of , allergies, and procedure to be performed. General endotracheal anesthesia was induced. The abdomen was prepped and draped in the usual standard fashion. The left arm was tucked to the patient's side and a Tavarez catheter placed. I anesthetized the infraumbilical fold with 0.5% Marcaine plain. An incision was made using a 15 blade along the infraumbilical fold. I used cautery to dissect down to the subcutaneous fat. I bluntly dissected down to the fascia using [employer] retractors. The fascia was grasped with Mary's and elevated. The fascia was incised using Edwards scissors. I identified the peritoneum and elevated this with a tonsil. It was sharply incised with a Metzenbaum scissors. A [id number] 0 Vicryl suture was placed in the fascia to allow for closure of this tissue at the end of the case. A 12 mm blunt-tip trocar was placed in the abdomen. The abdomen was insufflated to a pressure of 15 mmHg. A 5 mm 30 degree scope was inserted in the abdomen and I inspected the area underneath my incision. No damage was noted to the intestines underneath. Three 5 mm ports were placed under direct visualization in the following locations; one in the epigastric area, one along the right flank, and one along the midclavicular line two finger breathes below the right subcostal margin. The patient was placed in reverse Trendelenburg position and airplaned slightly to the left. The gallbladder was grossly enlarged and hydropic. I gently peeled down the omentum that was adhered loosely to the dome of the gallbladder. In order to be able to manipulate the gallbladder safely, I placed an aspiration needle through my right flank port and inserted it into the dome of the gallbladder. A large amount of light green watery fluid was aspirated. The aspiration needle was removed and atraumatic grasper was used to lift the dome of the gallbladder up above the liver. The patient's duodenum was adhered to the infundibulum. I took great care to gently dissect these adhesions without injuring the surrounding structures. Once the duodenum was safely removed from the gallbladder, I grasped the infundibulum with an atraumatic grasper placed through the midclavicular port. The infundibulum was retracted inferiorly and to the right. The peritoneum was inflamed with a large amount of edema in the tissues. This was taken down with blunt dissection, suction, and hook cautery. I identified the cystic duct and cystic artery. I continued to dissect the gallbladder wall off the gallbladder fossa shelter up the cystic plate to ensure that my anatomy was accurate. Once the critical view was achieved, I doubly clipped and ligated the cystic duct and cystic artery. Given how inflamed and enlarged the gallbladder was, there surrounding veins and branching arteries were enlarged. Several of these small bleeding vessels were also clipped and/or cauterized to ensure hemostasis. I used electrocautery to dissect the remainder of the gallbladder off the gallbladder fossa The gallbladder was then placed in an EndoCatch bag and removed through the infraumbilical port site. The gallbladder was so large that I had to enlarge the fascial incision using Edwards scissors and remove my previously placed 0 Vicryl suture. The gallbladder was passed off the table and sent to pathology. My 12 mm port was reinstalled on the abdomen and insufflation achieved. I copiously irrigated the abdomen with 2 L of normal saline until it ran clear. The area around the gallbladder fossa, cystic duct stump, and cystic artery stump were inspected and found to be hemostatic and with no leakage of bile. The ports were then removed under direct visualization and no further bleeding was noted. The 12 mm port was removed from the patient's abdomen and the abdomen allowed to desufflate. I closed the fascia at the infraumbilical site with interrupted 0 Vicryl sutures. The skin overlying the 12 mm port site was closed with interrupted 3-0 Vicryl sutures in the subcutaneous fat and a running 4-0 Monocryl suture in the subcuticular space. The 5 mm port sites were closed with interrupted 4-0 Monocryl sutures in the subcuticular space. The patient was noted during the case to have redness at tape sites. Because of this, Dermabond was placed over the incisions to avoid any extra adhesive to the patient's skin. Sterile dressings were applied. All counts were complete and correct at the end of the case. The patient was taken to the PACU in stable condition. JESICA CARPIO /[id number] JILLIAN
[2016-09-02] MEDS: HYDROmorphone 2 MG Tab PO PRN (17:15)
--- NOTE | 2016-09-02 18:43 | PCM48HPAN ---
Post Anesthesia Note - EVALUATION WITHIN 48HRS OF ANESTHETIC Vital Signs in Normal Range: Yes Patient Participated in Evaluation: Yes Respiratory Function Stable: Yes Airway Patent: Yes Cardiovascular Function Stable: Yes Hydration Status Stable: Yes Pain Control Satisfactory: Yes Nausea and Vomiting Control Satisfactory: Yes Mental Status Recovered: Yes - COMMENTS/OBSERVATIONS Free Text/Narrative:: Sitting up in a chair at bedside eating. States she just took a pain pill but doing ok.
[2016-09-02] MEDS: HYDROmorphone 2 MG/ML Syringe IVPUSH PRN ×3 (18:45→23:47)
[2016-09-02] MEDS: Lactated Ringers 1,000 ML IV SCH (18:48)
[2016-09-02] MEDS: Amitriptyline 25 MG Tab PO SCH (21:26)
[2016-09-02] MEDS: Ondansetron 4 MG/2 ML SDV IVPUSH PRN (21:42)
[2016-09-03] MEDS: HYDROmorphone 2 MG Tab PO PRN ×3 (01:18→12:25)
[2016-09-03] MEDS: Lactated Ringers 1,000 ML IV SCH (02:50)
[2016-09-03 06:17] LABS: CHLORIDE,CL 110 mmol/L (98-110); SODIUM,NA 138 mmol/L (136-146)
[2016-09-03 08:07] VITALS: BP 95/57
--- NOTE | 2016-09-03 08:14 | PCM.DCSUM1 ---
Discharge Summary - Hospital Course Free Text/Narrative:: Patient is a 36 year old female who presented to the ED with 12 hours of RUQ pain after a fatty meal. Work up revealed acute calculous cholecystitis. Patient was admitted to the hospital for fluid resuscitation and IV antibiotics. That evening she was given norco for pain. She became dizzy and itchy afterwards. Her BP dropped to 80s/40s. She was given a fluid bolus with improvement in her BP. [place] was added to her allergy list. She was taken to the OR the next day for a laparoscopic cholecystectomy. Her gallbladder was dilated, hydroptic, and filled with stones. The case went well with no complications. Her vitals were stable afterwards. She was able to advance her diet to regular. She was given oral dilaudid with no complications. Her pain was well controlled with this. She has been ambulating without difficulty. Her UOP is adequate. She was cleared for discharge home. - Discharge Data Discharge Date: 09/03/16 Discharge Disposition: Home, Self-Care 01 Condition: Good - Discharge Diagnosis/Problem(s) (1) Cholecystitis SNOMED Code(s): 14007208 ICD Code: K81.9 - CHOLECYSTITIS, UNSPECIFIED Status: Acute Current Visit : Yes - Patient Summary/Data Operative Procedure(s) Performed: Laparoscopic cholecystectomy - Patient Instructions Diet: Regular Diet as Tolerated Activity: No Lifting Over 20 Pounds (for four weeks), Rest and Relax Today Driving: Do Not Drive Driving, Other: No driving for one week or while taking narcotic pain medications Showering/Bathing: No Showering (until tomorrow), No Tub Bathing/Swimming (for 2 weeks) Wound/Incision Care: Keep Operative Site/Wound Site Clean and Dry Notify Provider of: Fever, Increased Pain, Swelling and Redness, Drainage, Nausea and/or Vomiting - Discharge Plan Prescriptions/Med Rec: HYDROmorphone [Dilaudid] 2 mg PO Q4H PRN #40 tablet PRN Reason: Abdominal Pain Polyethylene Glycol 3350 [MiraLAX] 17 gm PO BEDTIME #14 packet Home Medications: Home Meds Amitriptyline [Elavil] 25 mg PO BEDTIME 09/01/16 [History] HYDROmorphone [Dilaudid] 2 mg PO Q4H PRN #40 tablet 09/03/16 [Rx] Polyethylene Glycol 3350 [MiraLAX] 17 gm PO BEDTIME #14 packet 09/03/16 [Rx] Forms: ED Department Discharge Referrals: Sean Franklin [Primary Care Provider] - - General Info Date of Service: 09/03/16 Admission Dx/Problem (Free Text: Acute cholecystitis Functional Status: Reports: pain controlled, tolerating diet, ambulating, urinating, incentive spirometry - Review of Systems General: Reports: No Symptoms HEENT: Reports: no symptoms Pulmonary: Reports: no symptoms Cardiovascular: Reports: No Symptoms Gastrointestinal: Reports: No symptoms Genitourinary: Reports: no symptoms Musculoskeletal: Reports: no symptoms Skin: Reports: no symptoms Neurological: Reports: No Symptoms Psychiatric: Reports: no symptoms - Patient Data Vitals - Most Recent: Last Vital Signs Temp 37.1 C 09/03/16 08:00 Pulse 79 09/03/16 08:00 Resp 20 09/03/16 08:00 BP 95/57 L 09/03/16 08:00 Pulse Ox 93 L 09/03/16 08:00 Weight - Most Recent: 68.2 kg I&O - Last 24 hours: Intake & Output 09/02/16 09/03/16 09/03/16 22:59 06:59 14:59 Intake Total 801 2256 Output Total 2000 1900 Balance -1199 356 Lab Results - Last 24 hrs: Laboratory Results - last 24 hr 09/02/16 09/03/16 09/03/16 Range/Units 05:28 05:24 05:24 WBC 7.58 (4.0-11.0) K/uL RBC 3.45 L (4.30-5.90) M/uL Hgb 10.4 L (12.0-16.0) g/dL Hct 32.1 L (36.0-46.0) % MCV 93.0 (80.0-98.0) fL MCH 30.1 (27.0-32.0) pg MCHC 32.4 (31.0-37.0) g/dL RDW Std Deviation 49.0 (28.0-62.0) fl RDW Coeff of Rajeev 15 (11.0-15.0) % Plt Count 199 (150-400) K/uL MPV 9.00 (7.40-12.00) fL Nucleated RBC % 0.0 /100WBC Nucleated RBCs # 0 K/uL Sodium 138 (136-146) mmol/L Potassium 3.7 (3.5-5.1) mmol/L Chloride 110 (98-110) mmol/L Carbon Dioxide 22 (21-31) mmol/L BUN 7 (6.0-23.0) mg/dL Creatinine 0.6 (0.6-1.5) mg/dL Est Cr Clr Drug Dosing 127.26 mL/min Estimated GFR (MDRD) > 60.0 ml/min Glucose 102 (60-110) mg/dL Calcium 7.8 L (8.8-10.8) mg/dL Total Bilirubin 0.4 (0.1-1.5) mg/dL AST 67 H (5-40) IU/L ALT 174 H (8-54) IU/L Alkaline Phosphatase 51 (40-150) Total Protein 5.2 L (6.0-8.0) g/dL Albumin 3.3 L (3.5-5.0) g/dL Globulin 1.9 L (2.0-3.5) g/dL Albumin/Globulin Ratio 1.7 (1.3-2.8) Amylase 34 (10-90) U/L Lipase 10 (7-80) U/L Med Orders - Current: Current Medications Amitriptyline HCl (Elavil) 25 mg PO BEDTIME [facility] Last Admin: 09/02/16 21:26 Dose: 25 mg Hydromorphone HCl (Dilaudid) 0.5 mg IVPUSH Q1H PRN PRN Reason: Pain (severe 7-10) Last Admin: 09/02/16 23:47 Dose: 0.5 mg Hydromorphone HCl (Dilaudid) 2 mg PO Q4H PRN PRN Reason: Abdominal Pain Last Admin: 09/03/16 07:47 Dose: 2 mg Lactated Ringer's (Ringers, Lactated) 1,000 mls @ 125 mls/hr IV ASDIRECTED [facility] Last Admin: 09/03/16 02:50 Dose: 125 mls/hr Ondansetron HCl (Zofran) 4 mg IVPUSH Q6H PRN PRN Reason: Nausea/Vomiting Last Admin: 09/02/16 21:42 Dose: 4 mg Discontinued Medications Hydrocodone Bitart/Acetaminophen ([place] 325-5 Mg) 2 tab PO Q4H PRN PRN Reason: Pain (moderate 4-6) Last Admin: 09/01/16 15:48 Dose: 2 tab Bupivacaine HCl (Marcaine 0.5%) Confirm Administered Dose 30 ml .ROUTE .STK-MED ONE Stop: 09/02/16 07:57 Dexamethasone (Dexamethasone) Confirm Administered Dose 20 mg .ROUTE .STK-MED ONE Stop: 09/02/16 07:56 Fentanyl (Sublimaze) Confirm Administered Dose 250 mcg .ROUTE .STK-MED ONE Stop: 09/02/16 07:55 Fentanyl (Sublimaze) 50 mcg IVPUSH Q5M PRN PRN Reason: Pain (moderate 4-6) Stop: 09/02/16 13:00 Last Admin: 09/02/16 12:11 Dose: 50 mcg Glycopyrrolate () Confirm Administered Dose 1 mg .ROUTE .STK-MED ONE Stop: 09/02/16 07:58 Hydromorphone HCl (Dilaudid) 0.5 mg IVPUSH Q1H PRN PRN Reason: Pain Last Admin: 09/01/16 12:53 Dose: 0.5 mg Sodium Chloride (Normal Saline) 1,000 mls @ 999 mls/hr IV .Bolus ONE Stop: 09/01/16 06:56 Last Admin: 09/01/16 06:09 Dose: 999 mls/hr Piperacillin Sod/Tazobactam (Sod 3.375 gm/ Sodium Chloride) 50 mls @ 100 mls/ hr IV Q8H [facility] Last Admin: 09/02/16 14:42 Dose: 100 mls/hr Lactated Ringer's (Ringers, Lactated) 1,000 mls @ 200 mls/hr IV ASDIRECTED [facility] Stop: 09/02/16 10:00 Last Admin: 09/02/16 05:39 Dose: 200 mls/hr Iopamidol (Isovue-370 (76%)) 83 ml IVPUSH ONETIME STA Stop: 09/01/16 07:28 Last Admin: 09/01/16 07:27 Dose: 83 ml Ketorolac Tromethamine (Toradol) 30 mg IVPUSH ONETIME ONE Stop: 09/01/16 05:56 Last Admin: 09/01/16 06:11 Dose: 30 mg Lidocaine HCl (Xylocaine-Mpf 1%) Confirm Administered Dose 5 ml .ROUTE .STK-MED ONE Stop: 09/02/16 07:56 Midazolam HCl (Versed 1 Mg/Ml) Confirm Administered Dose 2 mg .ROUTE .STK-MED ONE Stop: 09/02/16 07:55 Midazolam HCl (Versed 1 Mg/Ml) Confirm Administered Dose 2 mg .ROUTE .STK-MED ONE Stop: 09/02/16 08:48 Neostigmine Methylsulfate (Neostigmine) Confirm Administered Dose 5 mg .ROUTE .STK-MED ONE Stop: 09/02/16 07:58 Octyl Cyanoacrylate (Dermabond Advance) Confirm Administered Dose 1 applic .ROUTE .[facility]-MED ONE Stop: 09/02/16 11:28 Ondansetron HCl (Zofran) 4 mg IVPUSH ONETIME ONE Stop: 09/01/16 05:56 Last Admin: 09/01/16 06:10 Dose: 4 mg Ondansetron HCl (Zofran) Confirm Administered Dose 4 mg .ROUTE .ST-MED ONE Stop: 09/02/16 07:56 Phenylephrine HCl (Phenylephrine In Ns 100 Mcg/Ml) Confirm Administered Dose 1 mg .ROUTE .STK-MED ONE Stop: 09/02/16 10:42 Phenylephrine HCl (Phenylephrine In Ns 100 Mcg/Ml) Confirm Administered Dose 1 mg .ROUTE .STK-MED ONE Stop: 09/02/16 10:52 Propofol (Diprivan 20 Ml) Confirm Administered Dose 200 mg .ROUTE .STK-MED ONE Stop: 09/02/16 07:55 Rocuronium [place] (Zemuron) Confirm Administered Dose 100 mg .ROUTE .STK-MED ONE Stop: 09/02/16 07:56 Succinylcholine Chloride (Succinylcholine In Ns Pf) Confirm Administered Dose 200 mg .ROUTE .STK-MED ONE Stop: 09/02/16 07:56 Succinylcholine Chloride (Succinylcholine In Ns Pf) Confirm Administered Dose 200 mg .ROUTE .STK-MED ONE Stop: 09/02/16 10:53 - Exam General: Reports: alert, oriented HEENT: Reports: Pupils equal, Pupils reactive Lungs: Reports: Clear to auscultation, Normal respiratory effort Cardiovascular: Reports: Regular Rate, Regular Rhythm Abdomen: Reports: soft, no tenderness, no distension. Denies: rebound, guarding , distension Extremities: Reports: no edema Skin: Reports: warm, dry, intact Wound/Incisions: Reports: dressing dry and intact Discharge Operative/Procedures - Procedures Performed Operations: Lap cholecystectomy *Q Meaningful Use (DIS) - VTE *Q VTE Criteria *Q: - Stroke *Q Stroke Criteria *Q: - AMI *Q AMI Criteria *Q:
== END 2016-09-03 12:31 | disposition home or self-care (01) ==
LOC: MW.ED 05:04 → MW.MS 11:25 → INTOOBSV 11:25 → MW.MS 12:00
PROVIDERS: ADMIT Surgery; ATTEND Surgery
PROC: 0FT44ZZ Resection of Gallbladder, Percutaneous Endoscopic Approach (ICD-10-PCS; principal; 2016-09-02)
DX: K80.12 Calculus of gallbladder with acute and chronic cholecystitis without obstruction (principal); Z88.1 Allergy status to other antibiotic agents; Z79.899 Other long term (current) drug therapy; Z90.710 Acquired absence of both cervix and uterus
CPT/HCPCS: 36415; 47562; 74178; 76705; 80053; 81001; 81025; 82150; 83690; 85025; 85027; 88304; 96361; 96365; 96366; 96375; 96376; 99285; A9270; G0378; J1100; J1170; J1885; J2250; J2405; J2543; J3010; J7040; J7050; J7120; Q9967; 00790; 96374; J2704

== ENCOUNTER 2017-01-24 12:56 | Day surgery (SDC) | payer MEDICAID ==
[~2017-01-24 12:56] MED LIST: Lactated Ringers 1,000 ML IV SCH; Sodium Chloride 0.9% 10 ML Syringe FLUSH PRN; Sodium Chloride 0.9% 2.5 ML Syringe FLUSH PRN
--- NOTE | 2017-01-24 14:00 | PCM.PREANE ---
Preanesthetic Assessment - Anesthesia/Transfusion/Family Hx Anesthesia History: Prior Anesthesia Reaction (remembers ETT when awakening from ATHLETIC COORDINATOR surgery) Family History of Anesthesia Reaction: No Transfusion History: No Prior Transfusion(s) Intubation History: Unknown - Review of Systems General: No Symptoms Pulmonary: No Symptoms Cardiovascular: No Symptoms Gastrointestinal: No Symptoms Neurological: No Symptoms Other: Reports: Anxiety - Physical Assessment NPO Status Date: 01/23/17 NPO Status Time: 23:00 O2 Sat by Pulse Oximetry: 96 Respiratory Rate: 16 Vital Signs: Last Vital Signs Temp 37.1 C 01/24/17 13:10 Pulse 80 01/24/17 13:10 Resp 16 01/24/17 13:10 BP 95/66 01/24/17 13:10 Pulse Ox 96 01/24/17 13:10 Height: 1.7 m Weight: 72.575 kg ASA Class: 2 Mental Status: Alert & Oriented x3 Airway Class: Mallampati = 2 Dentition: Reports: Broken Tooth/Teeth, Missing Tooth/Teeth ROM/Head Extension: Full Lungs: Clear to Auscultation, Normal Respiratory Effort Cardiovascular: Regular Rate, Regular Rhythm - Allergies Allergies/Adverse Reactions: Allergies Allergy/AdvReac Type Severity Reaction Status Date / Time cefaclor [From Ceclor] Allergy Rash Verified 01/22/17 17:02 hydrocodone [From [place]] Allergy Hypotension Verified 01/22/17 17:02 - Anesthesia Plan Pre-Op Medication Ordered: None - Acknowledgements Anesthesia Type Planned: MAC Pt an Appropriate Candidate for the Planned Anesthesia: Yes Alternatives and Risks of Anesthesia Discussed w Pt/Guardian: Yes Pt/Guardian Understands and Agrees with Anesthesia Plan: Yes PreAnesthesia Questionnaire - Past Health History Medical/Surgical History: Denies Medical/Surgical History HEENT History: Reports: Other (See Below) Other HEENT History: wears glasses Cardiovascular History: Reports: None Respiratory History: Reports: None Gastrointestinal History: Reports: Chronic Diarrhea, GERD, Other (See Below) Other Gastrointestinal History: epigastric pain Genitourinary History: Reports: None [employer] History: Reports: Ectopic Other OB/BYN History: Cervical cancer 2009 Musculoskeletal History: Reports: None Neurological History: Reports: Concussion Psychiatric History: Reports: Anxiety, Depression, PTSD Endocrine/Metabolic History: Reports: None Hematologic History: Reports: Other (See Below) Other Hematologic History: 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 Oncologic (Cancer) History: Reports: Cervix Other Oncologic History: Cervical Cancer, radical hysterectomy via davinci method Dermatologic History: Reports: None - Infectious Disease History Infectious Disease History: Reports: Chicken Pox - Past Surgical History HEENT Surgical History: Reports: Oral Surgery, Tonsillectomy Other HEENT Surgeries/Procedures: wisdom teeth GI Surgical History: Reports: Cholecystectomy Female Surgical History: Reports: Hysterectomy, Other (See Below) Other Female Surgeries/Procedures: surgery for ectopic Neurological Surgical History: Reports: None Other Oncologic Surgeries/Procedures: hysterectomy - SUBSTANCE USE Smoking Status *Q: Former Smoker Tobacco Use Within Last Twelve Months: Cigarettes Second Hand Smoke Exposure: No Recreational Drug Use History: Yes Recreational Drug Type: Reports: Marijuana/Hashish, Methamphetamine - HOME MEDS Home Medications: Home Meds Amitriptyline [Elavil] 25 mg PO BEDTIME 09/01/16 [History] Acetaminophen [Tylenol] 2 tab PO ASDIRECTED PRN 01/22/17 [History] DULoxetine HCl [Duloxetine HCl] 60 mg PO DAILY 01/22/17 [History] LORazepam 0.5 mg PO TID PRN 01/22/17 [History] Pantoprazole Sodium 40 mg PO DAILY 01/22/17 [History] - CURRENT (IN HOUSE) MEDS Current Meds: Current Medications Lactated Ringer's (Ringers, Lactated) 1,000 mls @ 125 mls/hr IV ASDIRECTED JENNA Last Admin: 01/24/17 13:35 Dose: 125 mls/hr Sodium Chloride (Saline Flush) 10 ml FLUSH ASDIRECTED PRN PRN Reason: Keep Vein Open Sodium Chloride (Saline Flush) 2.5 ml FLUSH ASDIRECTED PRN PRN Reason: Keep Vein Open
[2017-01-24] MEDS ORDERED: Lidocaine 2% 5 ML SDV ONE (15:14)
[2017-01-24] MEDS ORDERED: Propofol 200 MG/20 ML SDV ONE (15:14)
[2017-01-24] MEDS ORDERED: Midazolam 1 MG/ML 2 ML SDV ONE (15:14)
[2017-01-24] MEDS ORDERED: fentaNYL 100 MCG/2 ML SDV ONE (15:15)
[2017-01-24] MEDS ORDERED: Glycopyrrolate 0.2 MG/ML SDV ONE (15:39)
[2017-01-24] MEDS ORDERED: ePHEDrine 50 MG/ML SDV ONE (15:42)
[2017-01-24] MEDS ORDERED: Phenylephrine/Normal Saline 100 MCG/ML 10 ML Syringe ONE (15:46)
--- NOTE | 2017-01-24 16:22 | PCM.POSTAN ---
POST ANESTHESIA ASSESSMENT - MENTAL STATUS Mental Status: Alert, Oriented - RESPIRATORY Respiratory Status: Respiratory Rate WNL, Airway Patent, O2 Saturation Stable - CARDIOVASCULAR CV Status: Pulse Rate WNL, Blood Pressure Stable - GASTROINTESTINAL GI Status: No Symptoms - POST OP HYDRATION Hydration Status: Adequate & Stable
--- NOTE | 2017-01-24 16:44 | PCM48HPAN ---
Post Anesthesia Note - EVALUATION WITHIN 48HRS OF ANESTHETIC Vital Signs in Normal Range: Yes Patient Participated in Evaluation: Yes Respiratory Function Stable: Yes Airway Patent: Yes Cardiovascular Function Stable: Yes Hydration Status Stable: Yes Pain Control Satisfactory: Yes Nausea and Vomiting Control Satisfactory: Yes Mental Status Recovered: Yes
--- NOTE | 2017-01-24 16:52 | PCM.OPNOTE ---
- General Post-Op/Procedure Note Date of Surgery/Procedure: 01/24/17 Operative Procedure(s): EGD and colonoscopy Findings: Normal colon. Gastritis. Pre Op Diagnosis: Epigastric pain, diarrhea Post-Op Diagnosis: Gastritis Anesthesia Technique: MAC Primary Surgeon: Wendie Parry Condition: Good Free Text/Narrative:: Intake & Output 01/24/17 01/24/17 01/24/17 06:59 14:59 22:59 Intake Total 900 Balance 900
[2017-01-24 17:01] VITALS: BP 93/63
--- NOTE | 2017-01-25 13:23 | OR ---
SURGEON: WENDIE PARRY MD DATE OF PROCEDURE: 01/24/2017 PREOPERATIVE DIAGNOSES: Abdominal pain, diarrhea. POSTOPERATIVE DIAGNOSIS: Gastritis. PROCEDURE PERFORMED: Diagnostic EGD and colonoscopy. ENDOSCOPIST: Dr. Wendie Parry. INSTRUMENT USED: Olympus endoscope and Olympus colonoscope. ANESTHESIA: MAC. EXTENT OF EXAM: To the second portion of duodenum; to the cecum. PREPARATION: Good. LIMITATIONS: None. INDICATION FOR EXAMINATION: The patient is a 37-year-old female, who presents to clinic with burning epigastric pain and diarrhea. We discussed performing a diagnostic EGD and colonoscopy. I explained the procedure, as well as expected perioperative course. We discussed the risks, including bleeding, infection, or damage to surrounding structures, including perforation. The patient verbalized understanding and wishes to proceed. PROCEDURE IN DETAIL: The patient was brought into the endoscopy suite and placed in a left lateral decubitus position. A time-out was completed verifying the patient's name, age, date of , allergies, and procedure to be performed. A bite block was placed in the patient's mouth and monitored anesthesia care induced. After adequate sedation was achieved, a well lubricated endoscope was placed in the patient's mouth and advanced under direct visualization to the second portion of the duodenum. This appeared normal and a photograph was taken. The scope was then fully withdrawn while examining the upper GI mucosa. The remainder of the patient's esophagus appeared normal. The scope was brought into the stomach, and a photograph was taken of the GE junction and the pylorus. The patient was noted to have some mild gastritis along the pylorus. Biopsies were taken of the gastric antrum, body, and fundus, and sent for H. pylori testing. The scope was then brought into the distal esophagus and a photograph taken of the GE junction, which appeared normal. The remainder of the esophagus appeared free of pathology. The scope was removed from the patient. This portion of procedure was terminated. A digital rectal exam was then performed. This exam was within normal limits. A well lubricated colonoscope was inserted into the rectum and advanced under direct visualization to the level of the cecum. The cecum was identified by both visual and anatomic landmarks. A photograph was taken of the cecal cap, as well as the scope retroflexed within the cecum. The scope was then fully withdrawn while examining the color, texture, anatomy, and integrity of the mucosa from the cecum to the anal canal. The findings were consistent with normal colonic mucosa. The scope was brought into the rectum and retroflexed to allow visualization of the anal canal opening. This appeared normal and a photograph was taken. The scope was then straightened out and removed from the patient. The cecum to anus time was 7 minutes. The patient tolerated the procedure well and was taken to PACU in stable condition. ENDOSCOPIC DIAGNOSIS: Gastritis. RECOMMENDATIONS: Follow up in clinic in 2 weeks. JESICA CARPIO /[id number]
== END 2017-01-24 17:00 | disposition home or self-care (01) ==
LOC: MW.SDS 12:56
PROVIDERS: ATTEND Surgery
DX: R10.13 Epigastric pain (principal); F41.9 Anxiety disorder, unspecified; F32.9 Major depressive disorder, single episode, unspecified; Z87.891 Personal history of nicotine dependence; Z85.41 Personal history of malignant neoplasm of cervix uteri; Z88.1 Allergy status to other antibiotic agents; Z88.5 Allergy status to narcotic agent; Z79.899 Other long term (current) drug therapy; Z90.49 Acquired absence of other specified parts of digestive tract; Z90.710 Acquired absence of both cervix and uterus; Z90.89 Acquired absence of other organs; Z98.818 Other dental procedure status; Z98.890 Other specified postprocedural states
CPT/HCPCS: 43239; 45378; J2250; J3010; J7120; 00740; 88305; 88312; J2704